=== PATIENT | female | born 1950 | race Two or more races ===

== ENCOUNTER 2017-07-16 16:24 | Emergency (ER) | payer MEDICARE, OTHER ==
[~2017-07-16] VITALS: Ht 149.9 cm; Wt 63.5 kg
--- NOTE | 2017-07-16 16:45 | NUR ---
BIBRA 82 FROM [facility]AL [facility] FOR CHEST PAIN-RADIATES TO NECK AND L ARM PROVOKED BY ANXIETY PRIOR TO DENTAL PROCEDURE. PATIENT IS A/XO4 , BREATHING EVEN AND UNLABORED. NO SOB. VITALS STABLE. SKIN WARM AND DRY. SAFETY AND COMFORT MEASURES IN PLACE. IV INTACT ON RAC, 20 G. AWAITING MD ORDERS.
[2017-07-16 17:12] LABS: BASOPHILS # (AUTO) 0.1 /CMM (0.0-0.2); BASOPHILS % (AUTO) 2.6 % (0.0-2.0); EOSINOPHILS # (AUTO) 0.1 /CMM (0.0-0.7); EOSINOPHILS % (AUTO) 2.9 % (0.0-6.0); HEMATOCRIT 32 % (33-45); HEMOGLOBIN 10.9 g/dL (11.5-14.8); LYMPHOCYTES # (AUTO) 1.3 /CMM (0.8-4.8); LYMPHOCYTES % (AUTO) 26.6 % (20.0-44.0); MEAN CORPUSCULAR HEMOGLOBIN 28 PG (26.0-33.0); MEAN CORPUSCULAR HGB CONC 35 g/dl (31.0-36.0); MEAN CORPUSCULAR VOLUME 82 fL (82-100); MONOCYTES # (AUTO) 0.4 /CMM (0.1-1.30); MONOCYTES % (AUTO) 8.3 % (2.0-12.0); NEUTROPHILS # (AUTO) 2.9 /CMM (1.8-8.9); NEUTROPHILS % (AUTO) 59.6 % (43.0-81.0); PLATELET COUNT (AUTO) 323 /CMM (150-450); RDW COEFFICIENT OF VARIATION 14.9 (11.5-15.0); RED BLOOD CELL COUNT(AUTO) 3.86 MIL/uL (4.0-5.2); WHITE BLOOD COUNT (AUTO) 4.9 K/uL (4.3-11.0)
[2017-07-16 17:23] LABS: CALCIUM, SERUM 8.3 mg/dL (8.5-10.1); CARBON DIOXIDE 30 mmol/L (21-32); CHLORIDE 105 mmol/L (98-107); CREATININE 0.5 mg/dL (0.6-1.3); GLUCOSE 104 mg/dL (74-106); SODIUM SERUM 139 mmol/L (136-145); UREA NITROGEN, BLOOD 16 mg/dL (7-18)
[2017-07-16 17:26] LABS: INR 0.88 (0.87-1.13); PROTHROMBIN TIME 9.2 SECS (9.5-12.7)
[2017-07-16 17:32] LABS: TROPONIN I < 0.017 ng/mL (0.00-0.056)
[2017-07-16] MEDS ORDERED: DIAZEPAM 5 MG/ML 2 ML DISP.SYRIN IV ONE (18:00)
--- NOTE | 2017-07-16 18:15 | NUR ---
patient taken to ct via stretcher.
--- NOTE | 2017-07-16 18:29 | NUR ---
patient returned from ct in stable condition.
[2017-07-16] MEDS ORDERED: DIAZEPAM 10 MG TABLET ONE (18:34)
--- NOTE | 2017-07-16 18:53 | NUR ---
PULLED 10 MG ORAL TAB OF VALIUM, BUT MD ONLY ORDERED 5MG. HALF PILL ADMINISTERED PO, WASTE WITNESSED BY RN, FREDRICK.
[2017-07-16] MEDS ORDERED: KETOROLAC TROMETHAMINE INJ 30 MG/ML VIAL ONE (19:26)
[2017-07-16] MEDS ORDERED: KETOROLAC TROMETHAMINE INJ 30 MG/ML VIAL IV ONE (19:30)
--- NOTE | 2017-07-16 19:38 | NUR ---
REPORT GIVEN TO MELLO FOR DORIAN
--- NOTE | 2017-07-16 20:36 | NUR ---
PT AMBULATED WITH A STEADY GAIT. PT STATED THAT SHE FELT OK AND THAT SHE ONLY HAD SLIGHT PAIN ON THE LEFT SIDE OF HER FACE. VSS. IV removed. Catheter intact and site benign. Pressure and 4x4 applied to site. No bleeding noted. PT'S DAUGHTER IS COMING TO PICK HER UP.
--- NOTE | 2017-07-16 21:32 | NUR ---
PT'S DAUGHTER ARRIVED. Patient discharged to home in stable condition. Written and verbal after care instructions given. Patient verbalizes understanding of instruction.
[2017-07-16 21:33] VITALS: BP 121/64
[2017-07-17] MEDS ORDERED: DILT30TA2 PO (18:34)
[2017-07-17] MEDS ORDERED: METF-834 PO (18:34)
[2017-07-17] MEDS ORDERED: PRAV20TA4 PO (18:34)
[2017-07-17] MEDS ORDERED: LANS30CA54 PO (18:34)
== END 2017-07-16 21:33 | disposition home or self-care (01) ==
LOC: ER 16:25
DX: R51 Headache (principal); R20.2 Paresthesia of skin; M79.1 Myalgia; M62.838 Other muscle spasm; D64.9 Anemia, unspecified; E11.9 Type 2 diabetes mellitus without complications; F41.9 Anxiety disorder, unspecified; I10 Essential (primary) hypertension; I25.2 Old myocardial infarction; Z86.73 Personal history of transient ischemic attack (TIA), and cerebral infarction without residual deficits
CPT/HCPCS: 36415; 70450-TC; 71045-TC; 80048-TC; 84484-TC; 85025-TC; 85730-TC; A4606; J1885; Z7610

== ENCOUNTER 2017-07-17 16:50 | Emergency (ER) | payer OTHER, MEDICAID ==
[~2017-07-17] VITALS: Ht 149.9 cm; Wt 66.7 kg
--- NOTE | 2017-07-17 16:57 | NUR ---
PATIENT BIBRA FROM PRIMARY CLINIC D/T TO ABNORMAL EKG. PATIENT SEEN IN ER LAST NIGHT, STILL C/O CHEST PAIN AND GENERALIZED LEFT SIDED PAIN WELL. PATIENT IS A/OX 4. BREATHING EVEN AND UNLABORED. NO SOB. IV INTACT ON LAC, 18 G FROM FIELD. VITALS STABLE. SAFETY AND COMFORT MEASURES INPLACE. AWAITING MD ORDERS.
--- NOTE | 2017-07-17 17:05 | NUR ---
BLOOD DRAWN AND SENT TO LAB.
[2017-07-17 17:09] LABS: BASOPHILS % (AUTO) 0.7 % (0.0-2.0); EOSINOPHILS # (AUTO) 0.3 /CMM (0.0-0.7); EOSINOPHILS % (AUTO) 4.9 % (0.0-6.0); HEMATOCRIT 33 % (33-45); HEMOGLOBIN 11.3 g/dL (11.5-14.8); LYMPHOCYTES # (AUTO) 1.9 /CMM (0.8-4.8); LYMPHOCYTES % (AUTO) 35.7 % (20.0-44.0); MEAN CORPUSCULAR HEMOGLOBIN 28 PG (26.0-33.0); MEAN CORPUSCULAR HGB CONC 34 g/dl (31.0-36.0); MEAN CORPUSCULAR VOLUME 82 fL (82-100); MONOCYTES # (AUTO) 0.5 /CMM (0.1-1.30); MONOCYTES % (AUTO) 9.2 % (2.0-12.0); NEUTROPHILS # (AUTO) 2.7 /CMM (1.8-8.9); NEUTROPHILS % (AUTO) 49.5 % (43.0-81.0); PLATELET COUNT (AUTO) 354 /CMM (150-450); RDW COEFFICIENT OF VARIATION 15.4 (11.5-15.0); RED BLOOD CELL COUNT(AUTO) 4.01 MIL/uL (4.0-5.2); WHITE BLOOD COUNT (AUTO) 5.4 K/uL (4.3-11.0)
[2017-07-17 17:29] LABS: CALCIUM, SERUM 8.5 mg/dL (8.5-10.1); CARBON DIOXIDE 29 mmol/L (21-32); CHLORIDE 105 mmol/L (98-107); CREATININE 0.4 mg/dL (0.6-1.3); GLUCOSE 87 mg/dL (74-106); SODIUM SERUM 139 mmol/L (136-145); UREA NITROGEN, BLOOD 17 mg/dL (7-18)
[2017-07-17 17:33] LABS: INR 0.89 (0.87-1.13); PROTHROMBIN TIME 9.3 SECS (9.5-12.7)
[2017-07-17 17:42] LABS: TROPONIN I < 0.017 ng/mL (0.00-0.056)
[2017-07-17] MEDS ORDERED: IOHEXOL-350 100 ML VIAL IV ONE (18:17)
[2017-07-17] MEDS ORDERED: IV NS 0.9% 250 ML IV ONE (18:18)
[2017-07-17] MEDS ORDERED: DILT30TA2 PO (18:34)
[2017-07-17] MEDS ORDERED: LANS30CA54 PO (18:34)
[2017-07-17] MEDS ORDERED: PRAV20TA4 PO (18:34)
[2017-07-17] MEDS ORDERED: METF-834 PO (18:34)
[2017-07-17] MEDS ORDERED: KETOROLAC TROMETHAMINE 15 MG/ML VIAL ONE (18:42)
[2017-07-17] MEDS ORDERED: KETOROLAC TROMETHAMINE INJ 30 MG/ML VIAL IV ONE (19:00)
[2017-07-17] MEDS ORDERED: ASPIRIN 325 MG TABLET PO ONE (19:00)
[2017-07-17] MEDS ORDERED: ASPIRIN 325 MG TABLET ONE (19:08)
[2017-07-17] MEDS ORDERED: FAMOTIDINE/PF INJ 20 MG/2 ML VIAL IV ONE ×2 (19:16→19:30)
--- NOTE | 2017-07-17 19:20 | NUR ---
REPORT RECEIVED FROM BARBY CHERRY FOR [facility].
--- NOTE | 2017-07-17 19:20 | NUR ---
PATIENT REFUSED ASPIRIN STATING SHE RECEIVED DOSES OF ASPIRIN IN HER CLINIC AND ON ROUTE. HOWEVER, SHE IS C/O ACID REFLUX. INFORMED AND ORDERED PEPCIC IV.
--- NOTE | 2017-07-17 19:31 | NUR ---
REPORT GIVEN TO AYAN DIOR FOR DORIAN.
--- NOTE | 2017-07-17 19:43 | NUR ---
TRANSFER INFORMATION- [facility] DR. SALAS CALL ER FOR REPORT [phone]
--- NOTE | 2017-07-17 19:44 | NUR ---
[facility] ETA [id number]
--- NOTE | 2017-07-17 19:56 | NUR ---
CALL FROM [facility]. UPDATED ETA [id number]
--- NOTE | 2017-07-17 20:26 | NUR ---
REPORT GIVEN TO TOBY AT [facility] FOR [facility].
--- NOTE | 2017-07-17 20:36 | NUR ---
PT REFUSING TRANSFER DUE TO LONG TRANSPORT YOVANNY. MAK LYON AT BEDSIDE TALKING TO PT.
--- NOTE | 2017-07-17 20:44 | NUR ---
IV removed. Catheter intact and site benign. Pressure and 4x4 applied to site. No bleeding noted. Patient does not wish to proceed with medical care recommended by Dr. HUNG). Patient given information related to possible complications, up to and including , which could occur as a result of leaving the hospital at this time. Patient verbalizes understanding of risks involved due to leaving against medical advice. Patient has signed AMA form. pt [id number] no acute distress noted, resp even and unlabored. pt verbalize understanding of all risks explained by er md.
[2017-07-17 20:47] VITALS: BP 153/85
== END 2017-07-17 20:48 | disposition left against medical advice (07) ==
LOC: ER 16:51
DX: R07.9 Chest pain, unspecified (principal); R51 Headache; E11.9 Type 2 diabetes mellitus without complications; F41.9 Anxiety disorder, unspecified; I10 Essential (primary) hypertension; I25.2 Old myocardial infarction; Z88.8 Allergy status to other drugs, medicaments and biological substances; Z53.20 Procedure and treatment not carried out because of patient's decision for unspecified reasons
CPT/HCPCS: 36415; 71045; 80048; 84484; 85025; 85730; 93005; 96374; 96375; 99285; A4606; J1885; J3490; J7050; Q9967; Z7610